=== PATIENT | male | born 1985 | race Two or more races ===

== ENCOUNTER 2021-02-05 05:41 | Emergency (ER) | payer SELFPAY ==
[~2021-02-05] VITALS: Ht 180.3 cm; Wt 74.8 kg
--- NOTE | 2021-02-05 16:36 | EKG ---
[facility] [address] [place], [place] [address] Signed Normal sinus rhythm Normal ECG No previous ECGs available Confirmed by BALBIR SHIELDS MD ([id number] on 02/05/2021 4:36:39 PM Electronically Signed By: BALBIR SHIELDS MD 02/05/21 1636 PATIENT NAME: KATIE CHEW Electrocardiogram DATE OF : 89 PHYSICIAN: BALBIR SHIELDS MD REPORT #: [id number] REPORT IS CONFIDENTIAL AND NOT TO BE RELEASED WITHOUT AUTHORIZATION
== END 2021-02-05 07:38 | disposition home or self-care (01) ==
LOC: ED 05:41
DX: F41.9 Anxiety disorder, unspecified (principal); F17.200 Nicotine dependence, unspecified, uncomplicated
CPT/HCPCS: 80053; 81001; 85025; 93005; 93010; 99285-25; J7030